=== PATIENT | male | born 1960 | race Caucasian/White ===

== ENCOUNTER 2018-06-14 14:44 | Inpatient (IN) | payer BC, MEDICAID ==
[2018-06-14] VITALS (22 sets, daily range): BP systolic 100–144; BP diastolic 66–85
[~2018-06-14] VITALS: Ht 167.6 cm; Wt 77.1 kg
[2018-06-14] MEDS ORDERED: SODIUM CHLORIDE 0.9% 1,000 ML IV ONE (15:08)
[2018-06-14] MEDS ORDERED: ONDANSETRON HCL 4MG/2ML INJ IV STA (15:08)
[2018-06-14] MEDS ORDERED: LEVETIRACETAM 1000MG/100ML 100 ML IV ONE (15:15)
[2018-06-14 15:40] LABS: CHLORIDE 105 mEq/L (98-107)
[2018-06-14 15:41] LABS: BASOPHILS % 0.4 % (0.0-2.0); EOSINOPHILS % 3.7 % (0.0-5.0); HEMOGLOBIN. 15.9 g/dL (14.0-18.0); MEAN CORPUSCULAR HEMOGLOBIN 32.9 pg (28.0-32.0); MEAN CORPUSCULAR VOLUME 94.8 fL (80.0-94.0); MEAN PLATELET VOLUME 7.2 fl (7.4-10.4); MONOCYTES % 5.2 % (2.0-8.0); NEUTROPHILS % 76.7 % (40.0-76.0); PLATELET 182 x1000/uL (130-400); RED BLOOD CELL COUNT 4.85 mill/uL (4.7-6.1)
[2018-06-14 15:44] LABS: ETHANOL BLOOD < 10 mg/dL
[2018-06-14] MEDS ORDERED: CLONIDINE 0.1MG TABLET PO ONE (17:00)
[2018-06-14] MEDS ORDERED: MORPHINE SULFATE 4 MG/ML CPJ (NOT FOR IM USE) IV PRN (17:30)
[2018-06-14] MEDS ORDERED: DEXT 5%/0.45% NACL 1000ML 1,000 ML IV SCH (17:47)
[2018-06-14] MEDS ORDERED: HYDROCODONE/ACETAMINOPHEN 5/325MG TABLET PO PRN (18:00)
[2018-06-14] MEDS ORDERED: ONDANSETRON HCL 4MG/2ML INJ IV PRN (18:00)
[2018-06-14] MEDS ORDERED: ACETAMINOPHEN 325MG TABLET PO PRN (18:00)
[2018-06-14] MEDS ORDERED: HYDROMORPHONE HCL/PF 2MG/ML CPJ IV PRN (18:00)
[2018-06-14] MEDS ORDERED: CLONIDINE 0.1MG TABLET PO PRN (18:00)
[2018-06-14] MEDS ORDERED: LORAZEPAM 2MG/ML CPJ IV PRN (18:00)
[2018-06-14] MEDS: DEXT 5%/LACTATED RINGERS 1,000 ML IV SCH (18:30)
[2018-06-14] MEDS ORDERED: NICARDIPINE 100 MG in SODIUM CHLORIDE 0.9% 60 ML IV PRN ×4 (18:30)
[2018-06-14] MEDS: DEXAMETHASONE 4MG/ML 1ML VIAL IV SCH ×2 (19:47→23:42)
[2018-06-14 21:00] LABS: CLARITY URINE CLOUDY (CLEAR); COLOR URINE YELLOW (YELLOW); KETONES URINE NEGATIVE (NEGATIVE); LEUKOCYTE ESTERASE URINE 1+ (NEGATIVE); NITRITE URINE POSITIVE (NEGATIVE); OCCULT BLOOD URINE 2+ (NEGATIVE); PH URINE 7.5 (4.5-8.0); PROTEIN URINE NEGATIVE (NEGATIVE); SPECIFIC GRAVITY URINE 1.016 (1.005-1.030)
[2018-06-14 21:18] LABS: *AMPHETAMINES SCREEN URINE NEGATIVE (NEGATIVE); *BARBITURATES SCREEN URINE NEGATIVE (NEGATIVE)
[2018-06-14 21:19] LABS: *BENZODIAZEPINES SCREEN URINE NEGATIVE (NEGATIVE); *COCAINE SCREEN URINE NEGATIVE (NEGATIVE); CANNABINOID URINE SCREEN NEGATIVE (NEGATIVE); METHADONE URINE SCREEN NEGATIVE (NEGATIVE); OPIATES URINE SCREEN NEGATIVE (NEGATIVE); PHENCYCLIDINE URINE SCREEN NEGATIVE (NEGATIVE)
[2018-06-14] MEDS ORDERED: PNEUMOCOCCAL 23-VAL P-SAC VAC 0.5 ML IM ONE (22:00)
[2018-06-14] MEDS: LEVETIRACETAM 500MG in SODIUM CHLORIDE 0.9% 100ML IV SCH (23:01)
[2018-06-15] VITALS (84 sets, daily range): BP systolic 97–140; BP diastolic 59–103
[2018-06-15] MEDS: DEXAMETHASONE 4MG/ML 1ML VIAL IV SCH ×4 (05:41→23:31)
[2018-06-15 06:40] LABS: BASOPHILS % 0.1 % (0.0-2.0); HEMATOCRIT. 49.9 % (42.0-52.0); HEMOGLOBIN. 17.2 g/dL (14.0-18.0); MEAN CORPUSCULAR HEMOGLOBIN 32.8 pg (28.0-32.0); MEAN PLATELET VOLUME 7.5 fl (7.4-10.4); NEUTROPHILS % 86.9 % (40.0-76.0); PLATELET 189 x1000/uL (130-400); RED BLOOD CELL COUNT 5.25 mill/uL (4.7-6.1); RED CELL DISTRIBUTION WIDTH 14.4 % (11.6-14.6)
[2018-06-15 06:42] LABS: CHLORIDE 104 mEq/L (98-107)
[2018-06-15] MEDS ORDERED: LEVOFLOXACIN 500MG PREMIX 100 ML IV SCH (06:45)
[2018-06-15] MEDS ORDERED: LEVETIRACETAM 500MG PREMIX 100 ML IV SCH (09:00)
[2018-06-15] MEDS: LEVETIRACETAM 500MG in SODIUM CHLORIDE 0.9% 100ML IV SCH (09:20)
[2018-06-15] MEDS: LEVOFLOXACIN 500MG PREMIX 100 ML IV SCH (09:41)
[2018-06-15] MEDS: DEXT 5%/LACTATED RINGERS 1,000 ML IV SCH (12:24)
[2018-06-15] MEDS ORDERED: HYDR25TA PO (13:28)
[2018-06-15] MEDS ORDERED: DEXTROSE 50% WATER 50ML SYRINGE IV PRN (14:15)
[2018-06-15] MEDS: BLOOD SUGAR DIAGNOSTIC STRIP TEST SCH ×2 (16:30→20:35)
[2018-06-15] MEDS: INSULIN LISPRO 100 UNITS/ML SUBCUT SCH ×2 (17:36→20:36)
[2018-06-15] MEDS: LEVETIRACETAM 500MG TABLET PO SCH (20:27)
[2018-06-15] MEDS ORDERED: ATORVASTATIN CALCIUM 20MG TABLET PO SCH (21:00)
[2018-06-16] VITALS (28 sets, daily range): BP systolic 92–117; BP diastolic 57–83
[2018-06-16] MEDS: DEXT 5%/LACTATED RINGERS 1,000 ML IV SCH (05:03)
[2018-06-16] MEDS: DEXAMETHASONE 4MG/ML 1ML VIAL IV SCH ×2 (06:21→11:38)
[2018-06-16] MEDS: BLOOD SUGAR DIAGNOSTIC STRIP TEST SCH ×2 (06:22→11:38)
[2018-06-16] MEDS: INSULIN LISPRO 100 UNITS/ML SUBCUT SCH ×2 (06:25→11:38)
[2018-06-16] MEDS: LEVOFLOXACIN 500MG PREMIX 100 ML IV SCH (09:09)
[2018-06-16] MEDS: LEVETIRACETAM 500MG TABLET PO SCH (09:09)
[2018-06-16] MEDS ORDERED: KEPP500 PO (12:36)
[2018-06-16] MEDS ORDERED: ATOR20TA PO (12:38)
== END 2018-06-16 13:30 | disposition home or self-care (01) | DRG 65 ==
LOC: ER 14:44 → EDBEDREQSVC 16:35 → MICUSO 16:54 → EDBEDREQ 16:56 → ENRESERV 17:16 → SUPCPDRO 17:45
PROVIDERS: ADMIT Hospitalist; ATTEND Hospitalist
DX: I61.3 Nontraumatic intracerebral hemorrhage in brain stem (principal); N39.0 Urinary tract infection, site not specified; G40.409 Other generalized epilepsy and epileptic syndromes, not intractable, without status epilepticus; L29.9 Pruritus, unspecified; R26.9 Unspecified abnormalities of gait and mobility; E78.5 Hyperlipidemia, unspecified; E11.9 Type 2 diabetes mellitus without complications; R21 Rash and other nonspecific skin eruption; I10 Essential (primary) hypertension; Z86.73 Personal history of transient ischemic attack (TIA), and cerebral infarction without residual deficits
CPT/HCPCS: 36415; 80305; 80320; 82962; 83036; 83721; 87077; 87186; 93970; 99291; J1100; J1815; J1953; J1956; J2405; J7030; J7050; G0480

== ENCOUNTER 2018-12-19 18:13 | Inpatient (IN) | payer BC, MEDICAID ==
[~2018-12-19] VITALS: Ht 167.6 cm; Wt 83.0 kg
[~2018-12-19 18:13] MED LIST: ATOR20TA PO; HYDR25TA PO; KEPP500 PO
[2018-12-19] MEDS ORDERED: SODIUM CHLORIDE 0.9% 1,000 ML IV ONE (18:33)
[2018-12-19] MEDS ORDERED: LORAZEPAM 2MG/ML CPJ ONE (18:39)
[2018-12-19] MEDS ORDERED: LORAZEPAM 2MG/ML CPJ IV ONE ×3 (18:45→20:45)
[2018-12-19] MEDS ORDERED: LEVETIRACETAM 500MG PREMIX 100 ML IV ONE (18:45)
[2018-12-19 18:55] LABS: BASOPHILS % 0.7 % (0.0-2.0); EOSINOPHILS % 4.3 % (0.0-5.0); HEMATOCRIT. 50.6 % (42.0-52.0); HEMOGLOBIN. 17.5 g/dL (14.0-18.0); LYMPHOCYTES % 27.9 % (20.0-50.0); MEAN CORPUSCULAR HEMOGLOBIN 34.5 pg (28.0-32.0); MEAN PLATELET VOLUME 7.7 fl (7.4-10.4); MONOCYTES % 6.7 % (2.0-8.0); NEUTROPHILS % 60.4 % (40.0-76.0); PLATELET 233 x1000/uL (130-400); RED BLOOD CELL COUNT 5.06 mill/uL (4.7-6.1); RED CELL DISTRIBUTION WIDTH 14.6 % (11.6-14.6)
[2018-12-19 18:59] LABS: CHLORIDE 105 mEq/L (98-107)
[2018-12-19 19:00] LABS: PROTHROMBIN TIME 10.7 sec (9.6-11.0)
[2018-12-19 19:06] LABS: ETHANOL BLOOD < 10 mg/dL
[2018-12-19 19:08] LABS: LDL CHOLESTEROL 106 mg/dL (5-100)
[2018-12-19] MEDS ORDERED: ETOMIDATE 2MG/ML 10ML VIAL IV ONE ×2 (19:09→19:45)
[2018-12-19] MEDS ORDERED: VECURONIUM BROMIDE 10 MG/VIAL IV ONE ×2 (19:09→19:45)
[2018-12-19 19:10] LABS: CREATINE KINASE 139 IU/L (39-308); CREATINE KINASE MB FRACTION 2.6 ng/mL (0.5-3.6)
[2018-12-19 19:12] LABS: CARBAMAZEPINE < 0.5 ug/mL (4-12); PHENOBARBITAL < 2.1 ug/mL (15.0-40.0)
[2018-12-19 19:16] LABS: VALPROIC ACID < 3.0 ug/mL (50-100)
[2018-12-19] MEDS ORDERED: MIDAZOLAM HCL 50 MG in DEXTROSE 5% WATER 40 ML IV ONE (19:45)
[2018-12-19] MEDS ORDERED: MIDAZOLAM HCL 50 MG in DEXTROSE 5% WATER 40 ML IV SCH (20:00)
[2018-12-19] MEDS ORDERED: LEVETIRACETAM 1000MG/100ML 100 ML IV ONE ×2 (20:00)
[2018-12-19] MEDS ORDERED: PROPOFOL 10MG/ML 100ML 100 ML IV ONE (20:15)
[2018-12-19] MEDS ORDERED: ONDANSETRON HCL 4MG/2ML INJ IV PRN (21:15)
[2018-12-19] MEDS ORDERED: CLONIDINE 0.1MG TABLET PO PRN (21:15)
[2018-12-19 21:22] LABS: CLARITY URINE CLOUDY (CLEAR); COLOR URINE YELLOW (YELLOW); KETONES URINE NEGATIVE (NEGATIVE); LEUKOCYTE ESTERASE URINE TRACE (NEGATIVE); NITRITE URINE NEGATIVE (NEGATIVE); OCCULT BLOOD URINE NEGATIVE (NEGATIVE); PROTEIN URINE 2+ (NEGATIVE); SPECIFIC GRAVITY URINE 1.022 (1.005-1.030); UROBILINOGEN URINE 0.2 E.U./dL (0.2-1.0)
[2018-12-19 21:33] LABS: *BARBITURATES SCREEN URINE NEGATIVE (NEGATIVE); *COCAINE SCREEN URINE NEGATIVE (NEGATIVE)
[2018-12-19 21:34] LABS: *AMPHETAMINES SCREEN URINE NEGATIVE (NEGATIVE); *BENZODIAZEPINES SCREEN URINE PRESUMTIVE POSITIVE (NEGATIVE); CANNABINOID URINE SCREEN NEGATIVE (NEGATIVE); METHADONE URINE SCREEN NEGATIVE (NEGATIVE); OPIATES URINE SCREEN NEGATIVE (NEGATIVE); PHENCYCLIDINE URINE SCREEN NEGATIVE (NEGATIVE)
[2018-12-19 22:35] LABS: BG BASE EXCESS 0.1 mmol/L (-2.0-2.0); BG CARBOXYHEMOGLOBIN 0.9 % (0.5-1.5); BG DEOXYHEMOGLOBIN 0.5 % (0.0-5.0); BG FRACTION INSPIRED OXYGEN 100; BG HCO3 ACT 25.2 mmol/L (22.0-26.0); BG METHEMOGLOBIN 0.3 % (0.0-1.5); BG OXYGEN SATURATION 99.5 % (92.0-98.5); BG OXYHEMOGLOBIN 98.3 % (94.0-97.0); BG PCO2 42.7 mmHg (35.0-45.0); BG PH 7.389 (7.350-7.450); BG PO2 339.8 mmHg (75.0-100.0); BG SAMPLE SITE RIGHT RADIAL; BG TIDAL VOLUME(mL) 500 mL; BG TOTAL HEMOGLOBIN 14.8 g/dL (12.0-18.0); BG VENT MODE VENT - A/C; BG VENT RATE 12 set
[2018-12-20] VITALS (48 sets, daily range): BP systolic 88–129; BP diastolic 53–87
[2018-12-20] MEDS ORDERED: IPRATROPIUM/ALBUTEROL 0.5-3(2.5)MG/3ML NEB HHN PRN (00:15)
[2018-12-20] MEDS: PROPOFOL 10MG/ML 100ML 100 ML IV PRN ×6 (00:50→22:46)
[2018-12-20] MEDS: LEVETIRACETAM 500 MG in SODIUM CHLORIDE 0.9% 100 ML IV SCH ×2 (00:52→12:35)
[2018-12-20] MEDS: DEXT 5%/0.45% NACL KCL 10MEQ/L 1,000 ML IV SCH ×2 (00:52→16:30)
[2018-12-20] MEDS ORDERED: CHOL200059 PO (01:41)
[2018-12-20] MEDS ORDERED: [UNRECOGNIZED DRUG - OTHER] (01:41)
[2018-12-20 05:21] LABS: HEMATOCRIT. 42.3 % (42.0-52.0); HEMOGLOBIN. 14.7 g/dL (14.0-18.0); MEAN CORPUSCULAR HEMOGLOBIN 34.4 pg (28.0-32.0); MEAN CORPUSCULAR VOLUME 98.8 fL (80.0-94.0); MEAN PLATELET VOLUME 7.5 fl (7.4-10.4); PLATELET 132 x1000/uL (130-400); RED BLOOD CELL COUNT 4.27 mill/uL (4.7-6.1); RED CELL DISTRIBUTION WIDTH 14.4 % (11.6-14.6)
[2018-12-20 05:28] LABS: CHLORIDE 107 mEq/L (98-107)
[2018-12-20 05:42] LABS: CREATINE KINASE 116 IU/L (39-308)
[2018-12-20 06:24] LABS: T4 FREE 0.84 ng/dL (0.76-1.46)
[2018-12-20 06:38] LABS: PLATELET ESTIMATE NORMAL
[2018-12-20 07:28] LABS: BG BASE EXCESS 0.7 mmol/L (-2.0-2.0); BG CARBOXYHEMOGLOBIN 0.3 % (0.5-1.5); BG DEOXYHEMOGLOBIN 1.2 % (0.0-5.0); BG FRACTION INSPIRED OXYGEN 40; BG HCO3 ACT 25.7 mmol/L (22.0-26.0); BG METHEMOGLOBIN 0.1 % (0.0-1.5); BG OXYGEN SATURATION 98.8 % (92.0-98.5); BG OXYHEMOGLOBIN 98.4 % (94.0-97.0); BG PCO2 42.4 mmHg (35.0-45.0); BG PO2 154.2 mmHg (75.0-100.0); BG SAMPLE SITE RIGHT RADIAL; BG TIDAL VOLUME(mL) 500 mL; BG TOTAL HEMOGLOBIN 15.1 g/dL (12.0-18.0); BG VENT MODE VENT - A/C; BG VENT RATE 12 set
[2018-12-20] MEDS ORDERED: ENOXAPARIN 30MG/0.3ML SYR SUBCUT SCH (09:00)
[2018-12-20] MEDS ORDERED: LEVETIRACETAM 500 MG in SODIUM CHLORIDE 0.9% 100 ML IV SCH (09:00)
[2018-12-20] MEDS: PANTOPRAZOLE SODIUM 40 MG/VIAL IV SCH (12:34)
[2018-12-20] MEDS: IPRATROPIUM/ALBUTEROL 0.5-3(2.5)MG/3ML NEB HHN SCH ×2 (13:18→20:05)
[2018-12-20 17:05] LABS: CREATINE KINASE 94 IU/L (39-308)
[2018-12-20] MEDS: ATORVASTATIN CALCIUM 20MG TABLET PO SCH (20:57)
[2018-12-20] MEDS: LORAZEPAM 2MG/ML CPJ IV PRN (20:58)
[2018-12-20] MEDS: ACETAMINOPHEN 650MG SUPP PR PRN (21:46)
[2018-12-20] MEDS: LEVETIRACETAM 750 MG in SODIUM CHLORIDE 0.9% 100 ML IV SCH (23:01)
[2018-12-21] VITALS (63 sets, daily range): BP systolic 98–137; BP diastolic 58–92
[2018-12-21] MEDS: LORAZEPAM 2MG/ML CPJ IV PRN ×3 (00:48→20:29)
[2018-12-21] MEDS: PROPOFOL 10MG/ML 100ML 100 ML IV PRN ×2 (03:07→06:21)
[2018-12-21] MEDS: DEXT 5%/0.45% NACL KCL 10MEQ/L 1,000 ML IV SCH ×3 (03:20→20:16)
[2018-12-21] MEDS: IPRATROPIUM/ALBUTEROL 0.5-3(2.5)MG/3ML NEB HHN SCH ×4 (04:30→19:53)
[2018-12-21 04:59] LABS: HEMATOCRIT. 43.2 % (42.0-52.0); HEMOGLOBIN. 15.2 g/dL (14.0-18.0); MEAN CORPUSCULAR HEMOGLOBIN 34.7 pg (28.0-32.0); MEAN CORPUSCULAR VOLUME 98.7 fL (80.0-94.0); MEAN PLATELET VOLUME 7.7 fl (7.4-10.4); PLATELET 118 x1000/uL (130-400); RED BLOOD CELL COUNT 4.37 mill/uL (4.7-6.1); RED CELL DISTRIBUTION WIDTH 14.5 % (11.6-14.6)
[2018-12-21 05:11] LABS: CHLORIDE 108 mEq/L (98-107)
[2018-12-21] MEDS: PANTOPRAZOLE SODIUM 40 MG/VIAL IV SCH (09:07)
[2018-12-21] MEDS: LEVETIRACETAM 750 MG in SODIUM CHLORIDE 0.9% 100 ML IV SCH ×2 (09:07→21:17)
[2018-12-21] MEDS: ENOXAPARIN 40MG/0.4ML SYR SUBCUT SCH (09:07)
[2018-12-21] MEDS: MIDAZOLAM HCL 50 MG in DEXTROSE 5% WATER 40 ML IV PRN ×2 (11:02→20:37)
[2018-12-21] MEDS: FENTANYL CITRATE/PF 500 MCG in SODIUM CHLORIDE 0.9% 40 ML IV PRN ×2 (11:03→18:32)
[2018-12-21 12:22] LABS: PLATELET ESTIMATE DECREASED
[2018-12-21] MEDS: ACETAMINOPHEN 650MG SUPP PR PRN (20:50)
[2018-12-21] MEDS: ATORVASTATIN CALCIUM 20MG TABLET PO SCH (21:17)
[2018-12-21] MEDS ORDERED: MIDAZOLAM HCL 100 MG in DEXTROSE 5% WATER 80 ML IV PRN (22:08)
[2018-12-21] MEDS ORDERED: FENTANYL CITRATE/PF 1,000 MCG in SODIUM CHLORIDE 0.9% 80 ML IV PRN (22:12)
[2018-12-22] VITALS (72 sets, daily range): BP systolic 94–139; BP diastolic 61–108
[2018-12-22] MEDS: IPRATROPIUM/ALBUTEROL 0.5-3(2.5)MG/3ML NEB HHN SCH ×3 (01:31→20:10)
[2018-12-22 05:38] LABS: HEMATOCRIT. 39.9 % (42.0-52.0); MEAN CORPUSCULAR HEMOGLOBIN 34.7 pg (28.0-32.0); MEAN CORPUSCULAR VOLUME 98.7 fL (80.0-94.0); MEAN PLATELET VOLUME 7.6 fl (7.4-10.4); PLATELET 102 x1000/uL (130-400); RED BLOOD CELL COUNT 4.05 mill/uL (4.7-6.1); RED CELL DISTRIBUTION WIDTH 14.1 % (11.6-14.6)
[2018-12-22 05:40] LABS: CHLORIDE 105 mEq/L (98-107)
[2018-12-22 08:08] LABS: BG BASE EXCESS -0.4 mmol/L (-2.0-2.0); BG CARBOXYHEMOGLOBIN 0.8 % (0.5-1.5); BG DEOXYHEMOGLOBIN 1.9 % (0.0-5.0); BG FRACTION INSPIRED OXYGEN 30; BG HCO3 ACT 24.3 mmol/L (22.0-26.0); BG METHEMOGLOBIN 0.3 % (0.0-1.5); BG OXYGEN SATURATION 98.1 % (92.0-98.5); BG PCO2 40.1 mmHg (35.0-45.0); BG SAMPLE SITE RIGHT RADIAL; BG TIDAL VOLUME(mL) 500 mL; BG TOTAL HEMOGLOBIN 14.7 g/dL (12.0-18.0); BG VENT MODE VENT - A/C; BG VENT RATE 12 set
[2018-12-22] MEDS: LEVETIRACETAM 750 MG in SODIUM CHLORIDE 0.9% 100 ML IV SCH (08:21)
[2018-12-22] MEDS: PANTOPRAZOLE SODIUM 40 MG/VIAL IV SCH (08:21)
[2018-12-22] MEDS: ENOXAPARIN 40MG/0.4ML SYR SUBCUT SCH (08:21)
[2018-12-22] MEDS: DEXT 5%/0.45% NACL KCL 10MEQ/L 1,000 ML IV SCH ×2 (09:52→22:08)
[2018-12-22 10:17] LABS: PLATELET ESTIMATE DECREASED
[2018-12-22 16:26] LABS: BG BASE EXCESS -0.3 mmol/L (-2.0-2.0); BG CARBOXYHEMOGLOBIN 0.4 % (0.5-1.5); BG CPAP (cmH2O) 0 cm(H2O); BG DEOXYHEMOGLOBIN 2.6 % (0.0-5.0); BG HCO3 ACT 23.5 mmol/L (22.0-26.0); BG METHEMOGLOBIN 0.2 % (0.0-1.5); BG OXYGEN SATURATION 97.4 % (92.0-98.5); BG OXYHEMOGLOBIN 96.8 % (94.0-97.0); BG PCO2 36.1 mmHg (35.0-45.0); BG PH 7.431 (7.350-7.450); BG SAMPLE SITE RIGHT RADIAL; BG VENT MODE VENT - CPAP
[2018-12-22 18:07] LABS: BG BASE EXCESS 0.4 mmol/L (-2.0-2.0); BG CARBOXYHEMOGLOBIN 0.4 % (0.5-1.5); BG DEOXYHEMOGLOBIN 1.4 % (0.0-5.0); BG HCO3 ACT 24.7 mmol/L (22.0-26.0); BG METHEMOGLOBIN 0.3 % (0.0-1.5); BG OXYGEN SATURATION 98.6 % (92.0-98.5); BG OXYHEMOGLOBIN 97.9 % (94.0-97.0); BG PCO2 38.9 mmHg (35.0-45.0); BG PO2 138.5 mmHg (75.0-100.0); BG SAMPLE SITE RIGHT RADIAL; BG VENT MODE NASAL CANNULA
[2018-12-22] MEDS: LEVETIRACETAM 1,000 MG in SODIUM CHLORIDE 0.9% 100 ML IV SCH (21:00)
[2018-12-22] MEDS: ATORVASTATIN CALCIUM 20MG TABLET PO SCH (21:00)
[2018-12-22] MEDS: LORAZEPAM 2MG/ML CPJ IV PRN (21:42)
[2018-12-22] MEDS ORDERED: TRAMADOL 50MG TABLET PO PRN (22:00)
[2018-12-22] MEDS: ACETAMINOPHEN 650MG SUPP PR PRN (22:08)
[2018-12-22] MEDS: MORPHINE SULFATE 2 MG/ML CPJ (NOT FOR IM USE) IV PRN (23:22)
[2018-12-23] VITALS (48 sets, daily range): BP systolic 98–131; BP diastolic 59–104
[2018-12-23] MEDS: IPRATROPIUM/ALBUTEROL 0.5-3(2.5)MG/3ML NEB HHN SCH ×5 (00:28→20:22)
[2018-12-23 06:08] LABS: BASOPHILS % 0.3 % (0.0-2.0); EOSINOPHILS % 4.1 % (0.0-5.0); HEMATOCRIT. 40.9 % (42.0-52.0); HEMOGLOBIN. 14.5 g/dL (14.0-18.0); LYMPHOCYTES % 13.1 % (20.0-50.0); MEAN CORPUSCULAR HEMOGLOBIN 34.5 pg (28.0-32.0); MEAN CORPUSCULAR VOLUME 97.7 fL (80.0-94.0); MEAN PLATELET VOLUME 7.5 fl (7.4-10.4); MONOCYTES % 10.4 % (2.0-8.0); NEUTROPHILS % 72.1 % (40.0-76.0); PLATELET 107 x1000/uL (130-400); RED BLOOD CELL COUNT 4.19 mill/uL (4.7-6.1); RED CELL DISTRIBUTION WIDTH 13.5 % (11.6-14.6)
[2018-12-23 06:22] LABS: CHLORIDE 108 mEq/L (98-107)
[2018-12-23] MEDS: LEVETIRACETAM 1,000 MG in SODIUM CHLORIDE 0.9% 100 ML IV SCH ×2 (10:06→20:18)
[2018-12-23] MEDS: ENOXAPARIN 40MG/0.4ML SYR SUBCUT SCH (10:20)
[2018-12-23] MEDS: DEXT 5%/0.45% NACL KCL 10MEQ/L 1,000 ML IV SCH (10:20)
[2018-12-23] MEDS: PANTOPRAZOLE SODIUM 40 MG/VIAL IV SCH (10:20)
[2018-12-23] MEDS: MORPHINE SULFATE 2 MG/ML CPJ (NOT FOR IM USE) IV PRN (19:35)
[2018-12-23] MEDS: ATORVASTATIN CALCIUM 20MG TABLET PO SCH (20:18)
[2018-12-24] VITALS (14 sets, daily range): BP systolic 98–133; BP diastolic 68–87
[2018-12-24] MEDS: IPRATROPIUM/ALBUTEROL 0.5-3(2.5)MG/3ML NEB HHN SCH ×7 (00:29→21:18)
[2018-12-24] MEDS: ACETAMINOPHEN 650MG SUPP PR PRN (01:08)
[2018-12-24] MEDS: DEXT 5%/0.45% NACL KCL 10MEQ/L 1,000 ML IV SCH (01:19)
[2018-12-24] MEDS: MORPHINE SULFATE 2 MG/ML CPJ (NOT FOR IM USE) IV PRN ×2 (06:43→07:13)
[2018-12-24] MEDS: PANTOPRAZOLE SODIUM 40 MG/VIAL IV SCH (08:37)
[2018-12-24] MEDS: ENOXAPARIN 40MG/0.4ML SYR SUBCUT SCH (08:38)
[2018-12-24] MEDS: LEVETIRACETAM 1,000 MG in SODIUM CHLORIDE 0.9% 100 ML IV SCH (08:55)
[2018-12-24] MEDS: ACETAMINOPHEN 325MG TABLET PO PRN (17:24)
[2018-12-24] MEDS: LEVETIRACETAM 500MG TABLET PO SCH (21:18)
[2018-12-24] MEDS: FAMOTIDINE 20MG TABLET PO SCH (21:19)
[2018-12-24] MEDS: ATORVASTATIN CALCIUM 20MG TABLET PO SCH (21:19)
[2018-12-25] VITALS (10 sets, daily range): BP systolic 95–133; BP diastolic 59–86
[2018-12-25] MEDS: IPRATROPIUM/ALBUTEROL 0.5-3(2.5)MG/3ML NEB HHN SCH ×3 (01:45→09:11)
[2018-12-25] MEDS: LEVETIRACETAM 500MG TABLET PO SCH (08:40)
[2018-12-25] MEDS: FAMOTIDINE 20MG TABLET PO SCH (08:40)
[2018-12-25] MEDS: ENOXAPARIN 40MG/0.4ML SYR SUBCUT SCH (08:41)
[2018-12-25] MEDS: ACETAMINOPHEN 325MG TABLET PO PRN (09:54)
[2018-12-25] MEDS ORDERED: ATOR20TA PO (11:24)
[2018-12-25] MEDS ORDERED: KEPP500 PO (11:24)
[2018-12-25] MEDS ORDERED: HYDR25TA PO (11:24)
== END 2018-12-25 17:27 | disposition home or self-care (01) | DRG 208 ==
LOC: ER 18:13 → EDBEDREQSVC 20:47 → CVICU 20:50 → EDBEDREQTM 20:53 → EDBEDREQ 20:53 → ENRESERV 21:34 → 3WST 12-24 00:54
PROVIDERS: ADMIT Hospitalist; ATTEND Hospitalist
PROC: 5A1945Z Respiratory Ventilation, 24-96 Consecutive Hours (ICD-10-PCS; principal; 2018-12-19)
PROC: 06HY33Z Insertion of Infusion Device into Lower Vein, Percutaneous Approach (ICD-10-PCS; 2018-12-19)
PROC: 0BH17EZ Insertion of Endotracheal Airway into Trachea, Via Natural or Artificial Opening (ICD-10-PCS; 2018-12-19)
PROC: 02HV33Z Insertion of Infusion Device into Superior Vena Cava, Percutaneous Approach (ICD-10-PCS; 2018-12-22)
PROC: B548ZZA Ultrasonography of Superior Vena Cava, Guidance (ICD-10-PCS; 2018-12-22)
DX: J96.00 Acute respiratory failure, unspecified whether with hypoxia or hypercapnia (principal); I69.354 Hemiplegia and hemiparesis following cerebral infarction affecting left non-dominant side; N39.0 Urinary tract infection, site not specified; G40.411 Other generalized epilepsy and epileptic syndromes, intractable, with status epilepticus; I10 Essential (primary) hypertension; E78.5 Hyperlipidemia, unspecified; E87.6 Hypokalemia; E78.1 Pure hyperglyceridemia; Z91.14 Patient's other noncompliance with medication regimen; Z91.19 Patient's noncompliance with other medical treatment and regimen; Z78.1 Physical restraint status
CPT/HCPCS: 31500; 36415; 36556; 36600; 51702; 71045; 76937; 80048; 80156; 80165; 80184; 80185; 80305; 80320; 81003; 82375; 82550; 82553; 82805; 82962; 83721; 83735; 83880; 84439; 84443; 84478; 84484; 87070; 93005; 93970; 94002; 94003; 94640; 94660; 95816; 96365; 96368; 96375; 97162; 97166; 97530; 99291; C1725; C9113; J1650; J1953; J2060; J2250; J2270; J2704; J3010; J3490; J7030; J7050; J7060; J7620; G0480

== ENCOUNTER 2018-12-25 23:21 | Emergency (ER) | payer BC, MEDICAID ==
[~2018-12-25] VITALS: Ht 167.6 cm; Wt 80.0 kg
[~2018-12-25 23:21] MED LIST changes: +CHOL200059 PO; +[UNRECOGNIZED DRUG - OTHER]
[2018-12-26] MEDS ORDERED: LORAZEPAM 2MG/ML CPJ IV ONE (01:00)
[2018-12-26] MEDS ORDERED: LEVETIRACETAM 500MG PREMIX 100 ML IV ONE (01:00)
[2018-12-26 01:25] LABS: BASOPHILS % 0.7 % (0.0-2.0); EOSINOPHILS % 4.8 % (0.0-5.0); HEMATOCRIT. 42.5 % (42.0-52.0); LYMPHOCYTES % 8.1 % (20.0-50.0); MEAN CORPUSCULAR HEMOGLOBIN 34.2 pg (28.0-32.0); MEAN CORPUSCULAR VOLUME 97.1 fL (80.0-94.0); MEAN PLATELET VOLUME 7.3 fl (7.4-10.4); MONOCYTES % 7.8 % (2.0-8.0); NEUTROPHILS % 78.6 % (40.0-76.0); PLATELET 167 x1000/uL (130-400); RED BLOOD CELL COUNT 4.38 mill/uL (4.7-6.1); RED CELL DISTRIBUTION WIDTH 13.8 % (11.6-14.6)
[2018-12-26 01:31] LABS: CHLORIDE 108 mEq/L (98-107)
[2018-12-26 06:13] VITALS: BP 132/70
[2018-12-31] MEDS ORDERED: LEVE1000 MT (11:16)
[2018-12-31] MEDS ORDERED: AMLO10TA4 MT (11:18)
[2018-12-31] MEDS ORDERED: PHEN100C4 PO (11:18)
== END 2018-12-26 06:15 | disposition home or self-care (01) ==
LOC: ER 23:21
DX: R56.9 Unspecified convulsions (principal); I69.354 Hemiplegia and hemiparesis following cerebral infarction affecting left non-dominant side
CPT/HCPCS: 36415; 80053; 85025; 96365; 96375; 99283; J1953; J2060; Z7610

== ENCOUNTER 2018-12-26 12:20 | Inpatient (IN) | payer BC, MEDICAID ==
[~2018-12-26] VITALS: Ht 167.6 cm; Wt 83.9 kg
[~2018-12-26 12:20] MED LIST changes: -[UNRECOGNIZED DRUG - OTHER]
[2018-12-26] MEDS ORDERED: ONDANSETRON HCL 4MG/2ML INJ IV PRN (13:30)
[2018-12-26] MEDS ORDERED: DOCUSATE SODIUM 100MG CAPSULE PO PRN (13:30)
[2018-12-26] MEDS ORDERED: GUAIFENESIN 200MG/10ML SUGAR FREE UDC PO PRN (13:30)
[2018-12-26] MEDS ORDERED: LEVETIRACETAM 500MG PREMIX 100 ML IV ONE (13:30)
[2018-12-26] MEDS ORDERED: CLONIDINE 0.1MG TABLET PO PRN (13:30)
[2018-12-26] MEDS ORDERED: LORAZEPAM 2MG/ML CPJ IV ONE (13:30)
[2018-12-26 13:52] LABS: EOSINOPHILS % 5.3 % (0.0-5.0); HEMATOCRIT. 45.1 % (42.0-52.0); HEMOGLOBIN. 15.6 g/dL (14.0-18.0); LYMPHOCYTES % 7.6 % (20.0-50.0); MEAN CORPUSCULAR HEMOGLOBIN 33.8 pg (28.0-32.0); MEAN CORPUSCULAR VOLUME 97.6 fL (80.0-94.0); MEAN PLATELET VOLUME 7.3 fl (7.4-10.4); MONOCYTES % 5.9 % (2.0-8.0); NEUTROPHILS % 80.2 % (40.0-76.0); PLATELET 190 x1000/uL (130-400); RED BLOOD CELL COUNT 4.62 mill/uL (4.7-6.1); RED CELL DISTRIBUTION WIDTH 13.8 % (11.6-14.6)
[2018-12-26 13:58] LABS: CHLORIDE 108 mEq/L (98-107)
[2018-12-26] MEDS: SODIUM CHLORIDE 0.45% 1,000 ML IV SCH ×2 (14:00→23:03)
[2018-12-26 14:02] LABS: ETHANOL BLOOD < 10 mg/dL
[2018-12-26 14:03] LABS: CLARITY URINE CLOUDY (CLEAR); COLOR URINE DARK YELLOW (YELLOW); KETONES URINE 1+ (NEGATIVE); LEUKOCYTE ESTERASE URINE 2+ (NEGATIVE); NITRITE URINE POSITIVE (NEGATIVE); OCCULT BLOOD URINE 1+ (NEGATIVE); PH URINE 5.5 (4.5-8.0); PROTEIN URINE 1+ (NEGATIVE); SPECIFIC GRAVITY URINE 1.021 (1.005-1.030)
[2018-12-26 14:32] LABS: CANNABINOID URINE SCREEN NEGATIVE (NEGATIVE)
[2018-12-26 14:33] LABS: *AMPHETAMINES SCREEN URINE NEGATIVE (NEGATIVE); *BARBITURATES SCREEN URINE NEGATIVE (NEGATIVE); *BENZODIAZEPINES SCREEN URINE PRESUMTIVE POSITIVE (NEGATIVE); *COCAINE SCREEN URINE NEGATIVE (NEGATIVE); METHADONE URINE SCREEN NEGATIVE (NEGATIVE)
[2018-12-26 14:34] LABS: OPIATES URINE SCREEN NEGATIVE (NEGATIVE); PHENCYCLIDINE URINE SCREEN NEGATIVE (NEGATIVE)
[2018-12-26] MEDS ORDERED: CEFTRIAXONE 1 G PREMIX 50 ML IV ONE (15:15)
[2018-12-26 23:00] VITALS: BP 126/83
[2018-12-27] VITALS: BP 129/80
[2018-12-27 04:00] VITALS: BP 130/82
[2018-12-27] MEDS: ACETAMINOPHEN 325MG TABLET PO PRN ×2 (05:18→11:32)
[2018-12-27] MEDS: PHENYTOIN SODIUM EXTENDED 100MG CAPSULE PO SCH ×3 (05:24→21:56)
[2018-12-27 07:48] LABS: CHLORIDE 107 mEq/L (98-107)
[2018-12-27 08:00] VITALS: BP 115/70
[2018-12-27 08:51] LABS: EOSINOPHILS % 5.4 % (0.0-5.0); HEMATOCRIT. 40.4 % (42.0-52.0); HEMOGLOBIN. 14.1 g/dL (14.0-18.0); LYMPHOCYTES % 8.2 % (20.0-50.0); MEAN CORPUSCULAR HEMOGLOBIN 34.1 pg (28.0-32.0); MEAN CORPUSCULAR VOLUME 97.6 fL (80.0-94.0); MEAN PLATELET VOLUME 7.3 fl (7.4-10.4); MONOCYTES % 5.6 % (2.0-8.0); NEUTROPHILS % 79.8 % (40.0-76.0); PLATELET 176 x1000/uL (130-400); RED BLOOD CELL COUNT 4.13 mill/uL (4.7-6.1); RED CELL DISTRIBUTION WIDTH 13.7 % (11.6-14.6)
[2018-12-27] MEDS: ENOXAPARIN 40MG/0.4ML SYR SUBCUT SCH (09:08)
[2018-12-27] MEDS: AMLODIPINE 10MG TABLET PO SCH (09:08)
[2018-12-27] MEDS: LISINOPRIL 5MG TABLET PO SCH (09:09)
[2018-12-27] MEDS: LEVETIRACETAM 500MG TABLET PO SCH ×2 (09:09→21:56)
[2018-12-27 12:00] VITALS: BP 120/76
[2018-12-27] MEDS: LEVOFLOXACIN 500MG PREMIX 100 ML IV SCH (14:25)
[2018-12-27 16:00] VITALS: BP 132/82
[2018-12-27] MEDS ORDERED: PHENYTOIN SODIUM EXTENDED 100MG CAPSULE PO NR (16:00)
[2018-12-27] MEDS: HYDROCODONE/ACETAMINOPHEN 5/325MG TABLET PO PRN (16:42)
[2018-12-27] MEDS: SODIUM CHLORIDE 0.45% 1,000 ML IV SCH (16:50)
[2018-12-27] MEDS: LORAZEPAM 2MG/ML CPJ IV PRN (18:51)
[2018-12-27 20:00] VITALS: BP 119/74
[2018-12-28] MEDS: LORAZEPAM 2MG/ML CPJ IV PRN ×2 (00:34→20:57)
[2018-12-28 00:43] VITALS: BP 112/71
[2018-12-28 04:00] VITALS: BP 137/71
[2018-12-28] MEDS: SODIUM CHLORIDE 0.45% 1,000 ML IV SCH ×2 (05:30→18:09)
[2018-12-28] MEDS: PHENYTOIN SODIUM EXTENDED 100MG CAPSULE PO SCH ×3 (05:30→21:00)
[2018-12-28 07:14] LABS: CHLORIDE 109 mEq/L (98-107)
[2018-12-28 07:25] LABS: LDL CHOLESTEROL 73 mg/dL (5-100)
[2018-12-28 07:27] LABS: HDL CHOLESTEROL 22 mg/dL (40-59)
[2018-12-28 08:00] VITALS: BP 97/62
[2018-12-28] MEDS: LEVETIRACETAM 500MG TABLET PO SCH ×2 (08:46→20:59)
[2018-12-28] MEDS: ENOXAPARIN 40MG/0.4ML SYR SUBCUT SCH (08:47)
[2018-12-28] MEDS: LISINOPRIL 5MG TABLET PO SCH (08:54)
[2018-12-28] MEDS: AMLODIPINE 10MG TABLET PO SCH (08:55)
[2018-12-28 12:00] VITALS: BP 98/44
[2018-12-28] MEDS: LEVOFLOXACIN 500MG PREMIX 100 ML IV SCH (14:27)
[2018-12-28 16:00] VITALS: BP 113/72
[2018-12-28 20:23] VITALS: BP 113/74
[2018-12-29 00:43] VITALS: BP 103/67
[2018-12-29 04:00] VITALS: BP 127/64
[2018-12-29 06:29] LABS: BASOPHILS % 0.7 % (0.0-2.0); EOSINOPHILS % 5.6 % (0.0-5.0); HEMATOCRIT. 42.6 % (42.0-52.0); HEMOGLOBIN. 15.2 g/dL (14.0-18.0); LYMPHOCYTES % 12.2 % (20.0-50.0); MEAN CORPUSCULAR HEMOGLOBIN 33.9 pg (28.0-32.0); MEAN CORPUSCULAR VOLUME 95.1 fL (80.0-94.0); MEAN PLATELET VOLUME 6.9 fl (7.4-10.4); NEUTROPHILS % 74.5 % (40.0-76.0); PLATELET 235 x1000/uL (130-400); RED BLOOD CELL COUNT 4.48 mill/uL (4.7-6.1); RED CELL DISTRIBUTION WIDTH 13.5 % (11.6-14.6)
[2018-12-29] MEDS: PHENYTOIN SODIUM EXTENDED 100MG CAPSULE PO SCH (06:32)
[2018-12-29 07:01] LABS: CHLORIDE 110 mEq/L (98-107)
[2018-12-29 08:00] VITALS: BP 110/82
[2018-12-29] MEDS: LEVETIRACETAM 500MG TABLET PO SCH ×2 (09:22→20:24)
[2018-12-29] MEDS: AMLODIPINE 10MG TABLET PO SCH (09:23)
[2018-12-29] MEDS: LISINOPRIL 20MG TABLET PO SCH (09:23)
[2018-12-29] MEDS: ENOXAPARIN 40MG/0.4ML SYR SUBCUT SCH (09:24)
[2018-12-29] MEDS: SODIUM CHLORIDE 0.45% 1,000 ML IV SCH (09:29)
[2018-12-29 12:00] VITALS: BP 98/70
[2018-12-29] MEDS: LEVOFLOXACIN 500MG PREMIX 100 ML IV SCH (14:22)
[2018-12-29 16:00] VITALS: BP 107/79
[2018-12-29 20:23] VITALS: BP 118/77
[2018-12-29] MEDS: LORAZEPAM 2MG/ML CPJ IV PRN (20:24)
[2018-12-29] MEDS: HYDROCODONE/ACETAMINOPHEN 5/325MG TABLET PO PRN (21:16)
[2018-12-30] VITALS (7 sets, daily range): BP systolic 94–132; BP diastolic 54–78
[2018-12-30] MEDS: SODIUM CHLORIDE 0.45% 1,000 ML IV SCH ×2 (05:30→12:58)
[2018-12-30] MEDS: PHENYTOIN SODIUM EXTENDED 100MG CAPSULE PO SCH ×2 (09:06→19:37)
[2018-12-30] MEDS: LEVETIRACETAM 500MG TABLET PO SCH ×2 (09:06→21:19)
[2018-12-30] MEDS: AMLODIPINE 10MG TABLET PO SCH (09:06)
[2018-12-30] MEDS: LISINOPRIL 20MG TABLET PO SCH (09:06)
[2018-12-30] MEDS: ENOXAPARIN 40MG/0.4ML SYR SUBCUT SCH (09:07)
[2018-12-30] MEDS: ACETAMINOPHEN 325MG TABLET PO PRN (12:58)
[2018-12-30] MEDS: LEVOFLOXACIN 500MG PREMIX 100 ML IV SCH (14:24)
[2018-12-30] MEDS: LORAZEPAM 2MG/ML CPJ IV PRN (21:44)
[2018-12-31] VITALS (7 sets, daily range): BP systolic 98–123; BP diastolic 64–76
[2018-12-31] MEDS: SODIUM CHLORIDE 0.45% 1,000 ML IV SCH ×2 (03:28→13:22)
[2018-12-31] MEDS: PHENYTOIN SODIUM EXTENDED 100MG CAPSULE PO SCH ×2 (08:56→17:09)
[2018-12-31] MEDS: LEVETIRACETAM 500MG TABLET PO SCH ×2 (08:57→21:44)
[2018-12-31] MEDS: LISINOPRIL 20MG TABLET PO SCH (08:57)
[2018-12-31] MEDS: AMLODIPINE 10MG TABLET PO SCH (08:58)
[2018-12-31] MEDS: ENOXAPARIN 40MG/0.4ML SYR SUBCUT SCH (08:58)
[2018-12-31] MEDS ORDERED: LEVE1000 MT (11:16)
[2018-12-31] MEDS ORDERED: AMLO10TA4 MT (11:18)
[2018-12-31] MEDS ORDERED: PHEN100C4 PO (11:18)
[2018-12-31] MEDS: LEVOFLOXACIN 500MG TABLET PO SCH (13:16)
[2018-12-31] MEDS: HYDROCODONE/ACETAMINOPHEN 5/325MG TABLET PO PRN (14:46)
[2018-12-31] MEDS ORDERED: LORAZEPAM 2MG/ML CPJ IV PRN (19:45)
[2019-01-01] VITALS: BP 105/69
[2019-01-01] MEDS: SODIUM CHLORIDE 0.45% 1,000 ML IV SCH ×2 (02:42→16:02)
[2019-01-01 04:00] VITALS: BP 103/62
[2019-01-01 08:00] VITALS: BP 107/70
[2019-01-01] MEDS: LEVETIRACETAM 500MG TABLET PO SCH ×2 (08:40→20:49)
[2019-01-01] MEDS: PHENYTOIN SODIUM EXTENDED 100MG CAPSULE PO SCH ×2 (08:40→17:09)
[2019-01-01] MEDS: AMLODIPINE 10MG TABLET PO SCH (08:41)
[2019-01-01] MEDS: ENOXAPARIN 40MG/0.4ML SYR SUBCUT SCH (08:42)
[2019-01-01] MEDS: LISINOPRIL 20MG TABLET PO SCH (08:42)
[2019-01-01 12:00] VITALS: BP 101/69
[2019-01-01] MEDS: LEVOFLOXACIN 500MG TABLET PO SCH (12:29)
[2019-01-01] MEDS: ACETAMINOPHEN 325MG TABLET PO PRN (15:45)
[2019-01-01 16:00] VITALS: BP 95/64
[2019-01-01 20:00] VITALS: BP 105/68
[2019-01-02] VITALS: BP 98/68
[2019-01-02 04:00] VITALS: BP 95/64
[2019-01-02] MEDS: SODIUM CHLORIDE 0.45% 1,000 ML IV SCH (05:03)
[2019-01-02 08:00] VITALS: BP 106/74
[2019-01-02] MEDS: LISINOPRIL 20MG TABLET PO SCH (09:00)
[2019-01-02] MEDS: AMLODIPINE 10MG TABLET PO SCH (09:00)
[2019-01-02] MEDS: PHENYTOIN SODIUM EXTENDED 100MG CAPSULE PO SCH ×2 (09:09→18:00)
[2019-01-02] MEDS: LEVETIRACETAM 500MG TABLET PO SCH (09:09)
[2019-01-02] MEDS: ENOXAPARIN 40MG/0.4ML SYR SUBCUT SCH (09:10)
[2019-01-02 12:00] VITALS: BP 105/64
[2019-01-02] MEDS: LEVOFLOXACIN 500MG TABLET PO SCH (12:17)
[2019-01-02 16:00] VITALS: BP 104/68
== END 2019-01-02 18:30 | disposition home health service (06) | DRG 101 ==
LOC: ER 12:20 → 7WST 13:22 → ENRESERV 20:29
PROVIDERS: ADMIT Hospitalist; ATTEND Hospitalist
DX: G40.101 Localization-related (focal) (partial) symptomatic epilepsy and epileptic syndromes with simple partial seizures, not intractable, with status epilepticus (principal); N39.0 Urinary tract infection, site not specified; R62.7 Adult failure to thrive; I10 Essential (primary) hypertension; S90.512A Abrasion, left ankle, initial encounter; X58.XXXA Exposure to other specified factors, initial encounter; B96.20 Unspecified Escherichia coli [E. coli] as the cause of diseases classified elsewhere; E78.5 Hyperlipidemia, unspecified; Z68.29 Body mass index [BMI] 29.0-29.9, adult; Y93.89 Activity, other specified; Y92.89 Other specified places as the place of occurrence of the external cause; Y99.8 Other external cause status; Z79.899 Other long term (current) drug therapy; I69.30 Unspecified sequelae of cerebral infarction
CPT/HCPCS: 36415; 70551; 80048; 80061; 80185; 80305; 80320; 81003; 82962; 83735; 87077; 87186; 93005; 95816; 96365; 96375; 97116; 97162; 99285; J0696; J1650; J1953; J1956; J2060; A4315; G0480